=== PATIENT | female | born 1930 | race Hispanic/Latino ===

== ENCOUNTER → 2018-10-07 | Outpatient (RCR) | payer OTHER ==
[~2018-10-07] MED LIST: ADVAIR 250/501 EA INH; ALBUTEROL INH; ALBUTEROL0.63 MG/3; ALLEGRA ALLERG180 MG PO; CLOMIPRAMINE HC25 MG PO; DOXYCYCLINE HY100 MG PO; HYDROCODON-ACE1 EA11 PO; HYDROGESIC 5-51 EACH PO; KLOR-CON 1010 MEQ PO; LORATADINE10 MG PO; PREDNISONE10 MG PO; PREDNISONE5 MG PO; SPIRIVA18 MCG INH; TIZANIDINE HCL4 MG PO; XARELTO20 MG PO; Z.0.ALENDRONATE SOD7 PO; Z.0.CATAPRES0.3 MG PO; Z.0.CYCLOBENZAPRINE1 PO; Z.0.FOLIC ACID1 MG PO; Z.0.FUROSEMIDE20 MG PO; Z.0.IPRATROPIU0.2 MG IH; Z.0.LOSARTAN POTAS10 PO; Z.0.OMEPRAZOLE20 M1 PO; Z.0.OSCAL D500 MG PO; Z.0.TRAZODONE HCL50 PO; Z.0.ZOLOFT50 MG PO; Z.1.METHOTREXATE2.5 PO; [UNRECOGNIZED DRUG - OTHER] PO; loratadine PO; prednisone PO
== END ==
LOC: WCC 07:40
PROVIDERS: ATTEND Plastic Surgery
DX: S81.802A Unspecified open wound, left lower leg, initial encounter (principal); S80.811A Abrasion, right lower leg, initial encounter; R60.0 Localized edema; I70.203 Unspecified atherosclerosis of native arteries of extremities, bilateral legs; I10 Essential (primary) hypertension; D50.9 Iron deficiency anemia, unspecified; M19.019 Primary osteoarthritis, unspecified shoulder; W06.XXXA Fall from bed, initial encounter; W18.11XA Fall from or off toilet without subsequent striking against object, initial encounter; W22.8XXA Striking against or struck by other objects, initial encounter

== ENCOUNTER 2018-11-04 09:40 | Outpatient (RCR) | payer OTHER ==
[~2018-11-04 09:40] MED LIST changes: +LIDOCAINE VISC 2% SOLN 15 ML UDC ONE
[2018-11-04] MEDS ORDERED: LIDOCAINE/PRILOCAINE 2.5-2.5% KIT ONE (17:06)
== END 2018-11-07 ==
LOC: WCC 09:40
PROVIDERS: ATTEND Plastic Surgery
DX: S81.802A Unspecified open wound, left lower leg, initial encounter (principal); S80.811A Abrasion, right lower leg, initial encounter; R60.0 Localized edema; I10 Essential (primary) hypertension; D50.9 Iron deficiency anemia, unspecified; I70.203 Unspecified atherosclerosis of native arteries of extremities, bilateral legs; M19.019 Primary osteoarthritis, unspecified shoulder; W06.XXXA Fall from bed, initial encounter; W18.11XA Fall from or off toilet without subsequent striking against object, initial encounter; W22.8XXA Striking against or struck by other objects, initial encounter